=== PATIENT | male | born 1990 | race Hispanic/Latino ===

== ENCOUNTER 2023-04-04 11:23 | Emergency (ER) | payer OTHER, SELFPAY ==
[2023-04-04 11:51] VITALS: BP 111/79; PULSE 68; RESP 16; TEMP 36.6; O2SAT 100
--- NOTE | 2023-04-04 13:00 | ED.GENADULT ---
HPI - General Adult General Chief complaint: Urogenital-Male Stated complaint: accident Time Seen by Provider: 04/04/23 12:47 History of Present Illness HPI narrative: 32-year-old male presenting to the emergency department for evaluation of a possible penis injury. Patient reports last night he was having sexual activity felt like he hit a wall . Patient states he had no pain at the time of the incident but later in the evening started having increased pain at the base of his penis. Patient denies any pain with urination and denies any other pain or injury. Related Data Allergies Allergy/AdvReac Type Severity Reaction Status Date / Time No Known Allergies Allergy Verified 04/04/23 12:17 Review of Systems Review of Systems: All systems reviewed & are unremarkable except as noted in HPI and below Exam Narrative: APPEARANCE: Well appearing, no pain, no distress, well-nourished. HEAD: normocephalic, atraumatic. EYES: PERRLA/EOMI, conjunctivae clear. NOSE: Normal no drainage EARS:TMS clear with good light reflex. THROAT: Pharynx clear, no exudate. NECK: Supple. No adenopathy, no masses. RESPIRATORY: Airway patent, respirations nonlabored. Clear to auscultation bilaterally, no rales, rhonchi, wheezing. CARDIOVASCULAR: Regular rate and rhythm without murmurs rubs or gallops. ABDOMINAL: Soft, nontender, nondistended, normal bowel sounds Genitourinary: No penile fracture ecchymoses edema or deformity MUSCULOSKELETAL: Moves all extremities. Strength/ROM intact, No edema, No calf tenderness. NEURO: Alert. Cranial nerves II through XII intact. Good gait. Good coordination SKIN: Warm, dry. Normal Color PSYCHIATRIC: Normal affect/mood. Course Course Emergency Course: 32-year-old male presenting emergency department for evaluation after a suspected previous injury. Penis shows no edema ecchymosis or deformity. Patient's UA was negative. Patient denies any pain complaints at this time. Patient was updated on the results of the workup and the exam. all questions concerns were addressed. Vital Signs Vital signs: Vital Signs Temperature 97.8 F 04/04/23 11:51 Pulse Rate 68 04/04/23 11:51 Respiratory Rate 16 04/04/23 11:51 Blood Pressure 111/79 04/04/23 11:51 Pulse Oximetry 100 04/04/23 11:51 Temperature 97.8 F 04/04/23 11:51 Pulse Rate 68 04/04/23 11:51 Respiratory Rate 16 04/04/23 11:51 Blood Pressure 111/79 04/04/23 11:51 Pulse Oximetry 100 04/04/23 11:51 Medical Decision Making Vital Signs Vital Signs: Vital Signs Temperature 97.8 F 04/04/23 11:51 Pulse Rate 68 04/04/23 11:51 Respiratory Rate 16 04/04/23 11:51 Blood Pressure 111/79 04/04/23 11:51 Pulse Oximetry 100 04/04/23 11:51 Temperature 97.8 F 04/04/23 11:51 Pulse Rate 68 04/04/23 11:51 Respiratory Rate 16 04/04/23 11:51 Blood Pressure 111/79 04/04/23 11:51 Pulse Oximetry 100 04/04/23 11:51 Lab Data Labs: Lab Results 04/04/23 Range/Units 13:14 Urine Color Yellow (Yellow) Urine Appearance Clear (Clear) Urine pH 5.0 (5.0-9.0) Ur Specific [place] 1.014 (1.001-1.035) Urine Protein Negative (Negative) mg/dL Urine Glucose (UA) Negative (Negative) mg/dL Urine Ketones Negative (Negative) mg/dL Ur Blood (Man) Negative (Negative) Urine Nitrate Negative (Negative) Urine Bilirubin Negative (Negative) Urine Urobilinogen 0.2 (<2.0) mg/dL Leukocyte Esterase Rfl Negative (Negative) MANE/UL Discharge Plan Discharge Clinical Impression: Painful penis Patient Disposition: Home, Self-Care Condition: Stable Instructions: Antibiotic Form, Penis Fracture (ED) Additional Instructions: sexual rest. Have close follow-up with your primary care physician and urologist. If you have any worsening symptoms please call return to the ED. Follow-up/Referrals: Car Coats MD [Physician] - PHYSICIAN,BIOMETRICS ANALYST
[2023-04-04 13:23] LABS: Appearance Urine Clear (Clear); Bilirubin Urine Negative (Negative); Blood Urine Negative (Negative); Color Urine Yellow (Yellow); Glucose Urine UA Negative (Negative); Ketones Urine Negative (Negative); Leukocyte Esterase Ur Negative LEU/UL (Negative); Nitrate Urine Negative (Negative); Protein Urine Negative (Negative); Specific Grav Ur 1.014 (1.001-1.035); Urobilinogen Urine 0.2 mg/dL (<2.0)
[2023-04-04 13:46] LABS: Add Urine Microscopic? NO
== END 2023-04-04 13:56 | disposition home or self-care (01) ==
PROVIDERS: Emergency Provider Emergency Medicine
DX: N48.89 Other specified disorders of penis (principal)
CPT/HCPCS: 81003; 99283